=== PATIENT | female | born 1965 | race Hispanic/Latino ===

== ENCOUNTER 2017-12-29 10:34 | Outpatient (CLI) | payer BC ==
--- NOTE | 2017-12-31 14:28 | Magnetic Resonance Report ---
BILATERAL BREAST MRI WITHOUT AND WITH CONTRAST: 12/29/17 10:34:00 CLINICAL: Newly diagnosed right DCIS. 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 No invasive carcinoma identified. COMPARISON:None available. By report she had increased calcifications in her right breast on mammograms.. TECHNIQUE: Axial 1.0-mm T1 without, axial high resolution 2.0-mm T2 and axial 1.0-mm dynamic Vibrant high-resolution postcontrast T1 fat saturation sequences on a 1.5 Charlene magnet. The examination was performed with an 8 channel dedicated [place]in[place] breast coil. Post processing with CAD and subtraction was performed on an [employer] workstation. 17.0 cc of Multihance was injected for the contrast portion of the exam. Consent was obtained prior to the administration of the contrast. FINDINGS: Right: Minimal background parenchymal enhancement. An irregular enhancing mass at 9 o'clock 4 cm from the nipple measures 3.0 x 1.2 x 1.7 cm. It demonstrates heterogeneous enhancement with mixed kinetics, 160% peak enhancement, 34% type I persistent, 52% type II plateau and 14% type III washout waveforms. The mass is contiguous to the stereotactic biopsy site where there is a clip with a 1 cm post biopsy hematoma. The mass also surrounded by extensive regional clumped non-Mass enhancement involving an area measuring 7.0 cm AP dimension by 3.3 cm transverse dimension by approximately 3 cm craniocaudal dimension. No other mass or suspicious enhancement of the breast. One suspicious right level I axillary lymph node. The lymph node is not enlarged and measures approximately 1.5 x 0.8 cm. However, the cortex is slightly irregular. No other suspicious lymph nodes. Left: Minimal background parenchymal enhancement. No mass or suspicious enhancement. No suspicious left axillary or left internal mammary lymph nodes. IMPRESSION: 1. A 3 cm mass and extensive adjacent regional non-mass enhancement of the right breast in the vicinity of the biopsy proven DCIS which measures 7 x 3 x 3 cm. The total picture is suggestive of multicentric tumor. 2. One suspicious right axillary lymph node. 3. Negative left breast. RECOMMENDATION: A global right breast ultrasound to identify lesions which may be amenable to biopsy with ultrasound guidance. RIGHT BI-RADS 6 -- known cancer LEFT BI-RADS 1 -- Negative
== END 2017-12-29 10:35 | disposition home or self-care (01) ==
LOC: SPVIMAG 10:34
PROVIDERS: ATTEND Surgery
DX: C50.411 Malignant neoplasm of upper-outer quadrant of right female breast (principal)
CPT/HCPCS: A9577; C8908; 77059

== ENCOUNTER 2018-01-08 14:46 | Outpatient (CLI) | payer BC ==
--- NOTE | 2018-01-08 16:49 | Ultrasound Report ---
RIGHT BREAST ULTRASOUND: 01/08/18 14:46:00 CLINICAL: Known right breast cancer. 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 MRI performed on 12/30/17 demonstrates a 3 cm mass at 9 o'clock COMPARISON: 12/30/17 MRI FINDINGS: Ultrasound of the right breast(including all four quadrants and the retroareolar area) was performed and demonstrated a heterogeneous hypoechoic solid mass at 9 o'clock 4 cm from the nipple measuring approximately 3.1 x 2.0 x 1.4 cm. It correlates with the mass identified on MRI. A second hypoechoic mass closer to the nipple near the areola at 9 o'clock measures 7 x 7 x 8 mm. No other mass is identified. Ultrasound of the right axilla demonstrated a 1.4 x 1.3 x 0.5 cm lymph nodes with slightly irregular cortex in minimal central fat. It correlates with the suspicious lymph node on the MRI. IMPRESSION: 1. A 3.1 x 2.0 x 1.4 cm right breast mass at 9 o'clock 4 cm from the nipple. It correlates with the mass identified by MRI. 2. A second suspicious mass closer to the nipple at 9 o'clock measures 8 mm. 3. A suspicious 1.4 cm axillary lymph node. BI-RADS 6-- Known Cancer RECOMMENDATION: Ultrasound guided needle biopsy of two right breast masses and ultrasound guided needle biopsy of a right axillary lymph node.
== END 2018-01-08 14:47 | disposition home or self-care (01) ==
LOC: SPVWC 14:46
PROVIDERS: ATTEND Surgery
DX: N63.13 Unspecified lump in the right breast, lower outer quadrant (principal)

== ENCOUNTER 2018-01-15 12:38 | Outpatient (CLI) | payer BC ==
--- NOTE | 2018-01-15 14:42 | Mammography Report ---
RIGHT DIGITAL DIAGNOSTIC MAMMOGRAM: 01/15/18 12:38:00 CLINICAL: For clip placement immediately status post ultrasound biopsy. COMPARISON:12/09/17 outside mammogram FINDINGS: A biopsy clip is now identified at 9:30 o'clock and the clip is within 1 cm of the stereotactic biopsy clip. IMPRESSION: Concordant clip placement status post ultrasound biopsy. BI-RADS CATEGORY: 6--Known Cancer
--- NOTE | 2018-01-15 15:43 | Ultrasound Report ---
ULTRASOUND GUIDED NEEDLE CORE BIOPSY WITH CLIP PLACEMENT RIGHT BREAST AND ULTRASOUND GUIDED NEEDLE CORE BIOPSY OF A RIGHT AXILLARY LYMPH NODE : 01/15/18 CLINICAL: Right breast masses and a suspicious right axillary lymph node. COMPARISON :01/08/18 FINDINGS: The procedure was explained to the patient and informed consent was obtained. Ultrasound demonstrated the lesion described heterogeneous hypoechoic mass at 9 o'clock 4 cm from the nipple. Upon further scanning, determined that there only appears to be a single mass rather than multiple masses at 9 o'clock. The skin was prepped with Betadine and anesthetized with 1% lidocaine. Ultrasound needle core biopsy was performed through a small dermatotomy using ultrasound guidance, 2% lidocaine with epinephrine for deep anesthesia and a 14-gauge Achieve biopsy device. 5 cores were obtained and placed in formalin. A hydro-indra clip was deployed within the lesion. The skin in the axilla was prepped with Betadine and anesthetized with 1% lidocaine. Ultrasound guided needle core biopsy of the previously described right axillary lymph node was performed through a small dermatotomy using 2% lidocaine with epinephrine for deep anesthesia and a 18-gauge Achieve biopsy device. 2 samples were obtained and placed in formalin. A clip was deployed within the lymph node. Hemostasis was obtained at both sites with minimal pressure and sterile dressings were applied. The patient tolerated the procedure well and there were no apparent complications. Two-view mammogram demonstrated concordant clip placement. The clip is within 1 cm of the stereotactic biopsy clip. She was discharged in good condition and was given instructions for wound care and followup. IMPRESSION: Uncomplicated ultrasound-guided needle core biopsy of a right breast mass and uncomplicated needle core biopsy of right axillary lymph node.
== END 2018-01-15 12:39 | disposition home or self-care (01) ==
LOC: SPVWC 12:38
PROVIDERS: ATTEND Surgery
DX: D05.11 Intraductal carcinoma in situ of right breast (principal); R92.0 Mammographic microcalcification found on diagnostic imaging of breast; N64.1 Fat necrosis of breast
CPT/HCPCS: 19083; 38505; 77065; 88305; 88342; 88361; A4648; 76942

== ENCOUNTER 2018-02-24 05:56 | Observation (INO) | payer BC ==
--- NOTE | 2018-02-22 14:56 | Anesthesia Consultation ---
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 Insomnia) - Endocrine Hx Hypothyroidism: Yes - Hematic Hx Anemia: Yes - Other Systems Hx Alcohol Use: Yes (OCCA) Hx Substance Use: No Hx Cancer: Yes - Additional Comments Anesthesia Medical History Comments: Right breast CA. s/p endometrial ablation
[~2018-02-24 05:56] MED LIST: BACITRACIN IR ONE; GARAMYCIN IV ONE; NACL 0.9% IR ONE; WATER FOR IRRIG STERILE IR ONE
[2018-02-24] MEDS ORDERED: GARAMYCIN ONE (07:23)
[2018-02-24] MEDS ORDERED: BACITRACIN ONE (07:23)
[2018-02-24] MEDS ORDERED: NACL P/F VIAL (10 ML) 10 ML ONE (07:24)
[2018-02-24] MEDS ORDERED: METHYLENE BLUE ONE (07:24)
[2018-02-24] MEDS: LACTATED RINGERS 1,000 ML IV SCH ×2 (07:25→15:49)
[2018-02-24] MEDS ORDERED: MARCAINE 0.25% INFILTRATI ONE (07:35)
[2018-02-24] MEDS ORDERED: VERSED ONE (07:45)
[2018-02-24] MEDS ORDERED: NEURONTIN ONE (07:45)
[2018-02-24] MEDS ORDERED: ZOFRAN ONE (07:47)
[2018-02-24] MEDS ORDERED: XYLOCAINE MPF 2% ONE (07:47)
[2018-02-24] MEDS ORDERED: DIPRIVAN 10 MG/ML IV ONE (07:48)
[2018-02-24] MEDS ORDERED: XYLOCAINE 1% 20 mL ONE (07:48)
[2018-02-24] MEDS ORDERED: SUBLIMAZE ONE (07:48)
[2018-02-24] MEDS ORDERED: DILAUDID IV PRN (08:26)
--- NOTE | 2018-02-24 08:26 | Anesthesia Day of Surgery ---
Anesthesia Day of Surgery - Day of Surgery Patient Examined: Yes Patient H&P Reviewed: Yes Patient is NPO: Yes
[2018-02-24] MEDS ORDERED: VANCOMYCIN/NS 1 GM/250 ML 1 GM/250 ML BAG IV SCH (09:00)
[2018-02-24] MEDS ORDERED: WATER FOR IRRIG STERILE IR ONE (10:02)
[2018-02-24] MEDS ORDERED: VANCOMYCIN VIAL ONE (10:56)
[2018-02-24] MEDS ORDERED: BENADRYL ONE (10:59)
[2018-02-24] MEDS ORDERED: DECADRON ONE (10:59)
[2018-02-24] MEDS ORDERED: NACL 0.9% 100 ML ONE (10:59)
[2018-02-24] MEDS ORDERED: LACTATED RINGERS 1,000 ML ONE (10:59)
[2018-02-24] MEDS ORDERED: DILAUDID ONE (11:08)
[2018-02-24] MEDS ORDERED: BACITRACIN IR ONE (11:18)
[2018-02-24] MEDS ORDERED: NACL 0.9% IR ONE ×2 (11:18)
[2018-02-24] MEDS ORDERED: METHYLENE BLUE IRRIGATION ONE (11:18)
[2018-02-24] MEDS ORDERED: GARAMYCIN IV ONE (11:18)
[2018-02-24] MEDS ORDERED: VANCOMYCIN VIAL IRRIGATION ONE (11:18)
--- NOTE | 2018-02-24 12:40 | XRay Report ---
SPECIMEN RADIOGRAPH RIGHT BREAST: 02/24/18 05:56:00 CLINICAL: Mastectomy specimen FINDINGS: The entire right breast including 2 biopsy clips and 2 surgical clips are identified within the specimen.
[2018-02-24] MEDS ORDERED: ZOFRAN IV PRN (13:42)
[2018-02-24] MEDS ORDERED: SODIUM CHLORIDE FLUSH SYRINGE 10 ML IV PRN (13:42)
[2018-02-24] MEDS ORDERED: REGLAN PO PRN (13:42)
[2018-02-24] MEDS ORDERED: BENADRYL PO PRN (13:42)
[2018-02-24] MEDS ORDERED: TYLENOL PO PRN (13:42)
--- NOTE | 2018-02-24 13:42 | Operative Report ---
Operative Report Operative Report: Date of service: February 24, 2018 Preoperative diagnosis: Right breast cancer of the upper outer quadrant Postoperative diagnosis: Same Procedure: Left total mastectomy and right total mastectomy with sentinel lymph node biopsy Surgeon: Melina Gambino M.D. Anesthesia: Gen. Findings: Right breast clips x2 present within right total mastectomy. 3 sentinel lymph nodes identified and negative for malignancy on frozen section of pathology Complications: None Drains: per Plastic Surgery Estimated blood loss: Minimal Disposition: Dr. Calvin continued with bilateral tissue automobile body repair supervisor placement Indications for operative procedure: This is a 52-year-old lady with newly diagnosed multifocal stage 0 right breast cancer of the upper outer quadrant, DCIS [id number]. Recommendations were to proceed with right total mastectomy given large area of cancer of 7 cm, extensive multifocal left breast cancer and she wised to proceed with a left total prophylactic mastectomy. Patient wished to proceed with the above procedure and immediate tissue automobile body repair supervisor placement with plastic reconstructive surgery. Procedure in detail: Anesthesia placed a bilateral pectoral muscle block prior to going to the operating room. The patient was taken to the operating room and was placed supine. Gen. anesthesia was administered. The right nipple was injected with radioisotope. Bilateral breast were prepped and draped in the normal postoperative fashion. Timeout was performed. Mastectomy incision markings were made. Attention was taken towards the left breast first. A skin incision was made with a 10 blade knife and dissection taken down to the subcutaneous tissues. First began raising of the superior flap to the level of the clavicle superiorly and posteriorly to the pectoralis muscle. Followed by raising of the medial flap to the level of the sternum and posteriorly to the pectoralis muscle. Followed by raising of the lateral flap to the level of the latissimus dorsi muscle and taken down posteriorly. Followed by raising of the inferior flap to the level of the inframammary fold taken posterior to the pectoralis muscle. The mastectomy/breast was removed from the pectoralis muscle without incident. The specimen was appropriately marked and sent to pathology. Hemostasis was obtained with the bovie cautery. Attention was taken towards the right breast first. A skin incision was made with a 10 blade knife and dissection taken down to the subcutaneous tissues. First began raising of the superior flap to the level of the clavicle superiorly and posteriorly to the pectoralis muscle. Followed by raising of the medial flap to the level of the sternum and posteriorly to the pectoralis muscle. Followed by raising of the lateral flap to the level of the latissimus dorsi muscle and taken down posteriorly. The gamma probe was inserted into the axilla, axillary fascia was opened and 3 sentinel lymph nodes were identified and all remaining counts were less than 10% of the highest count. Lymph nodes were sent to pathology with findings negative for malignancy noted on frozen section. Then proceeded with raising of the inferior flap to the level of the inframammary fold taken posterior to the pectoralis muscle. The mastectomy/ breast was removed from the pectoralis muscle without incident. The specimen was appropriately marked and sent to radiology with findings of 2 breast clips present and sent to pathology. Hemostasis was obtained with the bovie cautery. Dr. Calvin then proceeded with bilateral tissue automobile body repair supervisor placement.
[2018-02-24] MEDS ORDERED: MORPHINE IV PRN (13:47)
--- NOTE | 2018-02-24 13:50 | Post Operative Note ---
Pre-op diagnosis: right breast cancer Post-op diagnosis: same Findings: bilateral mastectomy defects Procedure: bilateral breast recon with expanders and mesh Anesthesia: GETA Surgeon: GINETTE CHENG Estimated blood loss: minimal Pathology: none Condition: stable Disposition: PACU
--- NOTE | 2018-02-24 13:52 | Short Stay Summary ---
Short Stay Documentation Date of service: 02/24/18 - History H&P: obtained from office - Allergies and Medications Current Medications: Allergies Penicillins Allergy (Verified 02/16/18 12:00) Tingling and Hot skin Home Medications Medication Instructions Recorded Confirmed Last Taken Type AtorvaSTATin [Lipitor] 10 mg PO QHS 02/16/18 02/24/18 02/23/18 20:30 History Baclofen 20 mg PO TID 02/16/18 02/24/18 02/23/18 20:30 History Bupropion HCl [Bupropion HCl Sr] 150 mg PO BID 02/16/18 02/24/18 02/24/18 05:00 History Levothyroxine Sodium [Unithroid] 137 mcg PO QAM 02/16/18 02/24/18 02/24/18 05: 00 History Losartan Potassium [Cozaar] 100 mg PO DAILY 02/16/18 02/24/18 02/23/18 20:30 History metFORMIN [Glucophage] 500 mg PO QDAY 02/16/18 02/24/18 02/23/18 09:00 History traZODone [Desyrel] 50 mg PO QHS 02/16/18 02/24/18 02/23/18 20:30 History Active Medications Hydromorphone HCl (Dilaudid) 0.5 mg IV Q10MIN PRN PRN Reason: Pain , Severe (7-10) Stop: 02/24/18 22:00 Lactated Ringer's (Lactated Ringers) 1,000 mls @ 75 mls/hr IV DIRECT HERNANDEZ Last Admin: 02/24/18 07:25 Dose: 75 mls/hr - Brief post op/procedure progress note Date of procedure: 02/24/18 Pre-op diagnosis: Right breast cancer of the upper outer Post-op diagnosis: same Procedure: Right total mastectomy with SLNB and left total mastectomy Anesthesia: GETA Findings: 2 breast clips; 3 SLNs and negative for malignancy Surgeon: EDMUND FINK Estimated blood loss: minimal Pathology: list (bilateral mastectomy; 3 SLNs) Specimen disposition: to lab Condition: stable - Disposition Condition at discharge: Good Disposition: DC/TX-02 SHRT-TRM GEN HOSP IP Short Stay Discharge Plan Activity: other (no heavy lifting) Diet: regular Wound: other (keep incisions clean and dry; no baths or showers; no heavy lifting) Follow up with: YISEL ALMODOVAR [Other] - 7 Days EDMUND FINK MD [Staff Physician] - 7 Days
[2018-02-24] MEDS ORDERED: LACTATED RINGERS 1,000 ML IV SCH (14:00)
--- NOTE | 2018-02-24 14:41 | Operative Report ---
PREOPERATIVE DIAGNOSIS: Right-sided breast cancer. POSTOPERATIVE DIAGNOSIS: Right-sided breast cancer. PROCEDURE: 1. Bilateral breast reconstruction using tissue expanders in a prepectoral position, CPT CODE 93240. 2. Bilateral breast reconstruction using biological mesh, CPT CODE 35289-34. 3. Application of MICHAEL negative pressure wound VAC device to bilateral breasts for postoperative wound healing, CPT CODE 85160-76. SURGEON: Fred Johnston MD GAS LEAK INSPECTOR: None. ANESTHESIA: General. OPERATIVE INDICATIONS: This is a 52-year-old female with a history of right-sided breast cancer. She presented to my office in referral from Dr. Gambino for breast reconstruction. Discussion was had with the patient and we came to the decision of bilateral tissue envelope patternmaker reconstruction with a ventral implant exchange. Risks and benefits of surgery were discussed with the patient. She agreed. OPERATIVE DETAILS: After informed consent was obtained, the patient was brought to the operating room, placed supine on the operating room table. Preoperative antibiotics and general anesthesia were administered. Dr. Gambino did her portion of the operation and I came in to the operating room after she had completed the left-sided mastectomy. Her portion will be dictated separately. I measured the base width of the patient, which was approximately 14 cm and then prepared my reconstruction on the side table. We decided to do a prepectoral reconstruction using tissue envelope patternmaker and mesh. So on the back table, I created my composite implant by wrapping a tissue envelope patternmaker with a piece of FlexHD biologic mesh to place of the prepectoral implant. So, the left one was prepared using a [place] Artoura high profile smooth 600 mL implant with serial #[id number] and we wrapped it with a piece of FlexHD pliable 16 x 20 cm perforated serial #[id number]. It was wrapped and secured posteriorly with 2-0 PDS sutures. The 5 suture tabs were pulled out through small slits in the tissue. All of the air was evacuated from the envelope patternmaker and 250 mL of saline was injected into the envelope patternmaker. It was soaked in triple antibiotic irrigation and Betadine and we kept that covered until ready for implantation. We performed the exact same procedure to prepare the right-sided implant and again used a [place] Artoura high profile smooth 600 mL implant with serial #[id number] and we wrapped that with a piece of FlexHD pliable 16 x 20 cm perforated with serial #[id number]. Once the implants were repaired, I waited for Dr. Gambino to finish the right-sided mastectomy. When she was done, I assessed both pockets. We achieved hemostasis and irrigated copiously with triple antibiotic and Betadine. We then placed the last composite implant into the prepectoral space and sutured it using the 5 suture tabs and then an additional suture superiorly to secure to the chest wall. We did the same thing on the right side. We then placed 15 and 19-Polish round Josh drain into each prepectoral pocket and secured that in place. We irrigated again, achieved hemostasis and then began with closure. We used 3-0 Monocryl deep dermals and then a 2-0 Monocryl barbed suture on the skin. We then applied MICHAEL negative pressure wound VAC device to both breasts for postoperative wound healing. She tolerated the procedure well, was awakened from general anesthesia, transferred to PACU in stable condition. ESTIMATED BLOOD LOSS: Less than 50 mL. SPECIMENS: None. JOB# [id number] TYREL/PEACE
--- NOTE | 2018-02-24 15:14 | Post Anesthesia Evaluation ---
- Post Anesthesia Evaluation Patient Participated: Yes Airway Patent: Yes Stable Respiratory Function: Yes Nausea/Vomiting: No Temp > 96.8F: Yes Pain Manageable: Yes Adequeate Hydration: Yes Anesthesia Complications: No
[2018-02-24] MEDS: PERCOCET 5/325 PO PRN ×2 (17:10→22:43)
[2018-02-24] MEDS: NEURONTIN PO SCH ×2 (20:41→23:24)
[2018-02-24] MEDS ORDERED: VANCOMYCIN IV SCH (22:00)
[2018-02-24] MEDS: COLACE PO SCH (22:43)
[2018-02-24] MEDS: VANCOMYCIN/NS 1 GM/250 ML 1 GM/250 ML BAG IV SCH (23:24)
[2018-02-25] MEDS: PERCOCET 5/325 PO PRN ×2 (05:02→11:17)
[2018-02-25] MEDS: NEURONTIN PO SCH (05:12)
[2018-02-25] MEDS: COLACE PO SCH (09:54)
[2018-02-25] MEDS ORDERED: MOTRIN PO PRN (10:00)
[2018-02-25] MEDS: VANCOMYCIN/NS 1 GM/250 ML 1 GM/250 ML BAG IV SCH (10:06)
[2018-02-25 12:43] VITALS: BP 109/75
== END 2018-02-25 12:58 | disposition home or self-care (01) ==
LOC: OR 05:56 → OB 13:42
PROVIDERS: ADMIT Surgery; ATTEND Surgery
DX: C50.911 Malignant neoplasm of unspecified site of right female breast (principal); C50.912 Malignant neoplasm of unspecified site of left female breast
CPT/HCPCS: 15777; 19357; 19366; 64450; 76098; 78800; 82962; 88307; 88331; 88333; 88342; 96365; 96366; 96375; 97608; A9541; C1789; G0378; J1100; J1170; J1200; J1580; J2250; J2270; J2405; J2704; J3010; J3370; J7120; Q4128; Q9968